=== PATIENT | female | born 2000 | race Two or more races ===

== ENCOUNTER 2023-03-02 11:46 | Emergency (ER) | payer MEDICAID, OTHER ==
[~2023-03-02] VITALS: Ht 167.6 cm; Wt 78.0 kg
[2023-03-02 12:19] LABS: BASOPHILS % 0.6 % (0.0-2.0); EOSINOPHILS % 6.9 % (0.0-5.0); HEMATOCRIT. 38.5 % (36.0-48.0); HEMOGLOBIN. 13.1 g/dL (12.0-16.0); LYMPHOCYTES % 24.1 % (20.0-50.0); MEAN CORPUSCULAR HEMOGLOBIN 30.4 pg (28.0-32.0); MEAN CORPUSCULAR VOLUME 89.2 fL (81.0-99.0); MEAN PLATELET VOLUME 8.3 fl (7.4-10.4); MONOCYTES % 8.6 % (2.0-8.0); NEUTROPHILS % 59.8 % (40.0-76.0); PLATELET 399 x1000/uL (130-400); RED BLOOD CELL COUNT 4.32 mill/uL (4.2-5.4); RED CELL DISTRIBUTION WIDTH 13.3 % (11.6-14.6)
[2023-03-02 12:26] LABS: CHLORIDE 107 mEq/L (98-107)
[2023-03-02 12:30] VITALS: BP 130/89
[2023-03-02] MEDS ORDERED: AMOXICILLIN/POTASSIUM CLAVULANATE 875/125MG TAB PO ONE (12:30)
[2023-03-02] MEDS ORDERED: ACETAMINOPHEN 325MG TABLET PO ONE (12:30)
[2023-03-02] MEDS ORDERED: IBUPROFEN 400MG TABLET PO ONE (12:30)
[2023-03-02] MEDS ORDERED: AMOX1TAB16 MT (12:31)
[2023-03-02] MEDS ORDERED: ACET-2708 MT (12:31)
[2023-03-02] MEDS ORDERED: NAP5EC MT (12:31)
== END 2023-03-02 13:02 | disposition home or self-care (01) ==
LOC: ER 11:46
DX: K04.7 Periapical abscess without sinus (principal)
CPT/HCPCS: 36415; 80053; 81025; 85025; 99284